=== PATIENT | male | born 1950 | race Caucasian/White ===

== ENCOUNTER 2018-07-01 09:16 | Outpatient (CLI) | payer OTHER ==
[~2018-07-01] VITALS: Ht 177.8 cm; Wt 81.6 kg
[2018-07-01] MEDS ORDERED: OMEP1CAP PO (11:26)
== END 2018-07-01 11:28 | disposition home or self-care (01) ==
LOC: PREOP 09:16
PROVIDERS: ATTEND Surgery
DX: Z01.818 Encounter for other preprocedural examination (principal)

== ENCOUNTER 2018-07-02 11:32 | Day surgery (SDC) | payer MEDICARE, OTHER ==
[~2018-07-02] VITALS: Ht 177.8 cm; Wt 81.6 kg
[~2018-07-02 11:32] MED LIST: OMEP1CAP PO
[2018-07-02] MEDS ORDERED: NS IV 500 ML 500 ML IV PRN (11:41)
[2018-07-02] MEDS ORDERED: MIDAZOLAM 2 MG/2 ML (VERSED) VIAL IVP ONE (11:45)
[2018-07-02] MEDS ORDERED: LIDOCAINE JELLY 2% 6 ML SYRINGE MM PRN (11:45)
[2018-07-02] MEDS ORDERED: fentaNYL INJECTION 100 MCG/2 ML AMP IVP ONE (11:45)
[2018-07-02 11:55] VITALS: BP 139/107
[2018-07-02] MEDS ORDERED: NS IV 500 ML 500 ML ONE (12:16)
--- NOTE | 2018-07-02 12:18 | Conscious Sedation/ASA ---
Conscious Sedation Pre-Proced Time 12:00 ASA Score 2 For ASA 3 and 4: Consider anesthesia and medical clearance. Also, for patients with a history of failed moderate sedation consider anesthesia. Airway Lungs Heart ASA score ASA 1: a normal healthy patient ASA 2: a patient with a mild systemic disease (mid diabetes, controlled hypertension, obesity ASA 3: a patient with a severe systemic disease that limits activity (angina , COPD, prior Myocardial infarction) ASA 4: a patient with an incapacitating disease that is a constant threat to life (CHF, renal failure) ASA 5: a moribund patient not expected to survive 24 hrs. (ruptured aneurysm) ASA 6: a declared brain patient whose organs are being harvested. For emergent operations, add the letter E after the classification Mallampati Classification Grade 2 Sedation Plan Analgesia, Amnesia, Plan communicated to team members, Discussed options with patient/fam, Discussed risks with patient/fam The patient is an appropriate candidate to undergo the planned procedure, sedation, and anesthesia. The patient immediately re-assessed prior to indication. MART AMBRIZ MD Jul 02, 2018 12:18 pm
--- NOTE | 2018-07-02 12:20 | Progress Note-Pre Operative ---
Pre-Operative Progress Note H&P Reviewed The H&P was reviewed, patient examined and no changes noted. Date Seen by Provider: Jul 02, 2018 Time Seen by Provider: 12:00 Date H&P Reviewed: Jul 02, 2018 Time H&P Reviewed: 12:00 Pre-Operative Diagnosis: rectal bleed, screening colonoscopy MART AMBRIZ MD Jul 02, 2018 12:20 pm
[2018-07-02] MEDS ORDERED: HYDROcodone/APAP 5 MG/325 MG (LORTAB) TAB PO PRN (12:30)
[2018-07-02] MEDS ORDERED: ACETAMINOPHEN 325 MG TABLET PO PRN (12:30)
[2018-07-02] MEDS ORDERED: ONDANSETRON 4 MG/2 ML (SDV) Z0FRAN IV PRN (12:30)
[2018-07-02] MEDS ORDERED: morphine INJ 10 MG/ML 1ML (SYR OR VIAL) IV PRN (12:30)
--- NOTE | 2018-07-02 13:14 | Discharge Inst-Surgical ---
D/C Lap Instructions-KATINA Follow Up 10 years Activity as tolerated High Fiber Diet 25g or more per day Avoid Alcohol, Caffeine, Spicy [place] and Acid foods. Drink 64 fluid oz or more of fluids per day. Symptoms to Report: Fever over 101 degree F, Nausea/Vomiting If any problems/questions: Contact your physician or go to Emergency Room MART AMBRIZ MD Jul 02, 2018 1:14 pm
[2018-07-02] MEDS ORDERED: MIDAZOLAM 2 MG/2 ML (VERSED) VIAL ONE ×3 (13:16→13:31)
[2018-07-02] MEDS ORDERED: fentaNYL INJECTION 100 MCG/2 ML AMP ONE (13:17)
[2018-07-02] MEDS ORDERED: LIDOCAINE JELLY 2% 6 ML SYRINGE ONE (13:17)
--- NOTE | 2018-07-02 13:50 | Progress Note-Post Operative ---
Post-Operative Progess Note Surgeon (s)/Intervention Manager (s) Surgeon MART AMBRIZ MD Intervention Manager: none Pre-Operative Diagnosis rectal bleed, screening colonoscopy Post-Operative Diagnosis chronic stage 2 ext and int hemorrhoids, mild-mod sigmoid diverticulosis. Procedure & Operative Findings Date of Procedure 07/02/18 Procedure Performed/Findings Colonoscopy. Anesthesia Type CS Estimated Blood Loss Estimated blood loss (mL): minimal Specimens/Packing Specimens Removed none MART AMBRIZ MD Jul 02, 2018 1:50 pm
[2018-07-02 14:05] VITALS: BP 108/75
[2018-07-02 14:25] VITALS: BP 122/86
[2018-07-02 14:38] VITALS: BP 122/86
--- NOTE | 2018-07-03 00:02 | OPERATIVE REPORT ---
DATE OF SERVICE: 07/02/2018 ATTENDING PRIMARY CARE PHYSICIAN: Dr. Ovidio Sparks. PREOPERATIVE DIAGNOSIS: Screening colonoscopy. POSTOPERATIVE DIAGNOSES: Chronic stage II external and internal hemorrhoids, mild to moderate sigmoid diverticulosis. PROCEDURE: Colonoscopy. SURGEON: Mart Ambriz MD ANESTHESIA: Conscious sedation. ESTIMATED BLOOD LOSS: Minimal. FINDINGS: Mild chronic stage II external and internal hemorrhoids, not actively edematous nor inflamed and no bleeding. Prostate gland was palpable and appeared normal. There was a [id number] sigmoid diverticulosis with no mucosal inflammatory change to indicate any active diverticulitis. The remainder of the colon was normal. There were no polyps or any neoplasm identified. DISPOSITION: The patient tolerated the procedure well. INDICATIONS: The patient is a 68-year-old male in need of a screening colonoscopy. He has not had a colonoscopy up to this point in his life. He does report that he has noticed occasional episodes of small amounts of self-limited red blood per rectum. He reports that he has had some constipation in the past as well. He does not report any family history of colon cancer. DESCRIPTION OF PROCEDURE: The patient was brought to the endoscopy suite, laid in the left lateral decubitus position. After adequate IV pain and sedating medications and conscious sedation anesthesia, a digital rectal examination was performed. Mild chronic stage II external and internal hemorrhoids were identified, which were not actively edematous nor inflamed and no bleeding. Normal sphincter tone was felt and there were no palpable masses. Prostate gland was palpable and appeared normal. The endoscope was then intubated into the anus and rectum gently insufflated. The endoscope was then advanced through the valves of Poll[place] of the rectum with no polyps or any neoplasms identified. The endoscope was then advanced to the sigmoid colon where a [id number] sigmoid diverticulosis identified. There were no mucosal inflammatory changes to indicate any active diverticulitis. We then proceeded through the remainder of the descending, transverse and ascending colon to the cecum. These segments were normal. There were no polyps or any neoplasms identified throughout the colon or rectum. The endoscope was then slowly withdrawn while taking a second look and suctioning of residual air with no additional findings. The patient tolerated the procedure well. We will recommend medical management with a high fiber diet with at least 30 grams of fiber per day as well as at least 64 fluid ounces of water to promote soft stools on a daily basis. He does not need another colonoscopy for another 10 years. Job ID: [id number] DocumentID: [id number] Dictated Date: 07/02/2018 13:47:36 Architectural Intern Date: 07/03/2018 00:01:05 Dictated By: MART AMBRIZ MD
== END 2018-07-02 14:39 | disposition home or self-care (01) ==
LOC: ENDO 11:32
PROVIDERS: ATTEND Surgery
DX: Z12.11 Encounter for screening for malignant neoplasm of colon (principal); K57.30 Diverticulosis of large intestine without perforation or abscess without bleeding; K64.1 Second degree hemorrhoids; K21.9 Gastro-esophageal reflux disease without esophagitis; Z79.899 Other long term (current) drug therapy